=== PATIENT | female | born 1975 | race Caucasian/White ===

== ENCOUNTER 2017-09-28 15:05 | Emergency (ER) | payer MEDICAID ==
[2017-09-28 17:18] VITALS: BP 152/88
== END 2017-09-28 17:19 | disposition home or self-care (01) ==
LOC: ED 15:05
DX: S66.912A Strain of unspecified muscle, fascia and tendon at wrist and hand level, left hand, initial encounter (principal); S46.912A Strain of unspecified muscle, fascia and tendon at shoulder and upper arm level, left arm, initial encounter; W17.89XA Other fall from one level to another, initial encounter; Y93.89 Activity, other specified; Y92.89 Other specified places as the place of occurrence of the external cause; Y99.8 Other external cause status